=== PATIENT | male | born 1985 | race African-American/Black ===

== ENCOUNTER 2020-06-28 09:02 | Outpatient (CLI) | payer OTHER, SELFPAY ==
--- NOTE | 2020-06-28 14:18 | WPDNEUROLOGY ---
Neurology EEG Report General Information Date of Study: 06/28/20 TEST eeg DIAGNOSIS seizure disorder CONDITION OF RECORDING Awake drowsy and sleep EEG NUMBER [id number] CLINICAL HISTORY Patient reported a couple of years ago he started having nocturnal seizures. Feels fine when he goes to bed but wakes up feeling weak, tired, biting of tongue and loss of bladder continence. EEG DESCRIPTION basic resting occipital frequency consists of low-voltage 8 to 10 hertz per 2nd alpha admixed with low-voltage 15 to 18 hertz per 2nd beta. During drowsiness low-voltage beta activity seen diffusely admixed with waxing and waning posterior alpha rhythm. Hyperventilation not done. Photic stimulation produced poor drive. Bilateral symmetric sleep activity seen during sleep. Non paroxysmal. Nonfocal. Nonlateralizing. IMPRESSION Normal EEG during wakefulness drowsiness and sleep and with photic stimulation as well
== END 2020-06-28 09:03 | disposition home or self-care (01) ==
PROVIDERS: Visit Provider Nurse Practitioner Family
DX: G40.909 Epilepsy, unspecified, not intractable, without status epilepticus (principal)
CPT/HCPCS: 95816